=== PATIENT | female | born 1965 | race Caucasian/White ===

== ENCOUNTER 2018-07-05 19:21 | Emergency (ER) | payer OTHER ==
[~2018-07-05] VITALS: Ht 165.1 cm; Wt 50.8 kg
[2018-07-05] MEDS ORDERED: HYDROcodone/APAP 5/325 TABLET ONE ×2 (19:43→22:23)
[2018-07-05] MEDS ORDERED: HYDROcodone/APAP 5/325 TABLET PO PRN (20:00)
[2018-07-05] MEDS ORDERED: LIDOCAINE-MPF 2%, 2ML SQ ONE (20:00)
[2018-07-05] MEDS ORDERED: LIDOCAINE 2%, 20ML SQ ONE (20:00)
[2018-07-05] MEDS ORDERED: BACITRACIN ZINC OINT 500U/GM, 0.9 GM ONE ×2 (20:39→20:56)
[2018-07-05] MEDS ORDERED: LIDOCAINE 1%-EPI 1:100K, 20ML ONE (21:23)
[2018-07-05] MEDS ORDERED: L.E.T SOLUTION TP ONE ×2 (21:52→22:00)
[2018-07-05] MEDS ORDERED: HYDROcodone/APAP 5/325 TABLET PO ONE (22:30)
[2018-07-05 22:54] VITALS: BP 124/65
== END 2018-07-05 22:56 | disposition home or self-care (01) ==
LOC: ED 22:40
DX: S01.81XA Laceration without foreign body of other part of head, initial encounter (principal); S50.811A Abrasion of right forearm, initial encounter; S80.211A Abrasion, right knee, initial encounter; G89.29 Other chronic pain; Z90.89 Acquired absence of other organs; Z90.710 Acquired absence of both cervix and uterus; V29.59XA Motorcycle passenger injured in collision with other motor vehicles in traffic accident, initial encounter; Y93.89 Activity, other specified; Y92.89 Other specified places as the place of occurrence of the external cause; Y99.8 Other external cause status
CPT/HCPCS: 12051; 70450; 70486; 73090; 73130; 73564; 99284; J3490